=== PATIENT | female | born 1995 | race Caucasian/White ===

== ENCOUNTER 2019-01-09 00:43 | Emergency (ER) | payer OTHER ==
[~2019-01-09] VITALS: Ht 165.1 cm; Wt 87.9 kg
[2019-01-09] MEDS ORDERED: XANAX0.5 M1 PO (00:59)
[2019-01-09 02:12] LABS: HEMATOCRIT 40.1 % (37.0-47.0); HEMOGLOBIN 13.6 g/dL (12.5-16.0); MEAN CELL VOLUME 83 fl (78-100); MEAN CORPUSCULAR HEMOGLOBIN 28 pg (27-31); MEAN CORPUSCULAR HGB CONC 34 g/dL (33-37); PLATELET COUNT 279 K/mm3 (130-400); RED BLOOD COUNT 4.83 M/mm3 (4.10-5.30); RED CELL DISTRIBUTION WIDTH 13.4 % (11.5-14.5); WHITE BLOOD COUNT 6.9 K/mm3 (4.8-10.8)
[2019-01-09 02:28] LABS: LYMPHOCYTE 26 % (20-51); MONOCYTE 10 % (3-10); NEUTROPHILS 62 % (42-75)
[2019-01-09] MEDS ORDERED: VALACYCLOVIR1 GM PO ×2 (02:48→02:50)
[2019-01-09] MEDS ORDERED: CEPHALEXIN250 MG PO (02:48)
[2019-01-09 02:49] VITALS: BP 108/78
== END 2019-01-09 02:57 | disposition home or self-care (01) ==
LOC: ED 00:43
PROVIDERS: Family Medicine
DX: J06.9 Acute upper respiratory infection, unspecified (principal); H10.9 Unspecified conjunctivitis; N76.6 Ulceration of vulva; F32.9 Major depressive disorder, single episode, unspecified; F17.210 Nicotine dependence, cigarettes, uncomplicated; F17.290 Nicotine dependence, other tobacco product, uncomplicated

== ENCOUNTER 2019-09-04 09:53 | Emergency (ER) | payer SELFPAY ==
[~2019-09-04] VITALS: Ht 165.1 cm; Wt 79.5 kg
[~2019-09-04 09:53] MED LIST: CEPHALEXIN250 MG PO; VALACYCLOVIR1 GM PO; XANAX0.5 M1 PO
[2019-09-04 10:49] LABS: EOS # 0.3 (0.04-0.40); EOS % 3.4 % (1.0-5.0); HEMATOCRIT 44.2 % (37.0-47.0); HEMOGLOBIN 14.8 g/dL (12.5-16.0); LYMPH# 2.4 (1.50-4.00); MEAN CELL VOLUME 88 fl (78-100); MEAN CORPUSCULAR HEMOGLOBIN 30 pg (27-31); MEAN CORPUSCULAR HGB CONC 34 g/dL (33-37); MEAN PLATELET VOLUME 9.9 fl (7.4-10.4); PLATELET COUNT 302 K/mm3 (130-400); RED BLOOD COUNT 5.02 M/mm3 (4.10-5.30); RED CELL DISTRIBUTION WIDTH 13.2 % (11.5-14.5); WHITE BLOOD COUNT 8.8 K/mm3 (4.8-10.8)
[2019-09-04 11:18] LABS: URINE APPEARANCE CLOUDY; URINE BILIRUBIN NEGATIVE (NEGATIVE); URINE BLOOD NEGATIVE (NEGATIVE); URINE COLOR YELLOW; URINE GLUCOSE NEGATIVE (NEGATIVE); URINE KETONE NEGATIVE (NEGATIVE); URINE LEUKOCYTE ESTERASE TRACE (NEGATIVE); URINE NITRATE NEGATIVE (NEGATIVE); URINE PROTEIN(semi-quant) NEGATIVE (NEGATIVE); URINE UROBILINOGEN NORMAL (NORMAL)
[2019-09-04 12:00] VITALS: BP 111/73
== END 2019-09-04 12:05 | disposition home or self-care (01) ==
LOC: ED 09:53
PROVIDERS: Family Medicine
DX: R10.32 Left lower quadrant pain (principal); Z87.42 Personal history of other diseases of the female genital tract
CPT/HCPCS: J1885

== ENCOUNTER → 2019-11-08 | Outpatient (CLI) | payer SELFPAY | LOC: LAB 12:25 | DX: J02.9 Acute pharyngitis, unspecified (principal); Z20.828 Contact with and (suspected) exposure to other viral communicable diseases ==

== ENCOUNTER 2020-03-08 17:44 | Emergency (ER) | payer SELFPAY ==
[~2020-03-08] VITALS: Ht 165.1 cm; Wt 72.7 kg
[2020-03-08 18:44] LABS: HEMATOCRIT 47.2 % (37.0-47.0); HEMOGLOBIN 15.5 g/dL (12.5-16.0); MEAN CELL VOLUME 89 fl (78-100); MEAN CORPUSCULAR HEMOGLOBIN 29 pg (27-31); MEAN CORPUSCULAR HGB CONC 33 g/dL (33-37); MEAN PLATELET VOLUME 9.9 fl (7.4-10.4); PLATELET COUNT 282 K/mm3 (130-400); RED BLOOD COUNT 5.32 M/mm3 (4.10-5.30); RED CELL DISTRIBUTION WIDTH 13.5 % (11.5-14.5); WHITE BLOOD COUNT 6.6 K/mm3 (4.8-10.8)
[2020-03-08 18:52] LABS: POTASSIUM 3.9 mmol/L (3.5-5.1)
[2020-03-08 18:53] LABS: URINE APPEARANCE CLEAR; URINE BILIRUBIN NEGATIVE (NEGATIVE); URINE BLOOD TRACE (NEGATIVE); URINE COLOR YELLOW; URINE GLUCOSE NEGATIVE (NEGATIVE); URINE KETONE NEGATIVE (NEGATIVE); URINE LEUKOCYTE ESTERASE TRACE (NEGATIVE); URINE NITRATE NEGATIVE (NEGATIVE); URINE PROTEIN(semi-quant) TRACE mg/dL (NEGATIVE); URINE UROBILINOGEN NORMAL (NORMAL)
[2020-03-08 18:53] LABS: CALCIUM 8.5 mg/dL (8.3-10.5)
[2020-03-08 18:55] LABS: URINE MUCUS PRESENT (NOT PRESENT)
[2020-03-08 19:01] LABS: LYMPHOCYTE 26 % (20-51); MONOCYTE 13 % (3-10); NEUTROPHILS 55 % (42-75)
[2020-03-08 19:28] VITALS: BP 118/60
== END 2020-03-08 19:28 | disposition home or self-care (01) ==
LOC: ED 17:44
PROVIDERS: Physician Assistant
DX: N93.9 Abnormal uterine and vaginal bleeding, unspecified (principal); F17.210 Nicotine dependence, cigarettes, uncomplicated; Z32.02 Encounter for pregnancy test, result negative; Z88.8 Allergy status to other drugs, medicaments and biological substances

== ENCOUNTER → 2020-03-15 | Outpatient (CLI) | payer SELFPAY ==
[2020-03-15 12:09] VITALS: BP 134/60
== END ==
LOC: AMSURD 11:36
DX: A54.9 Gonococcal infection, unspecified (principal)
CPT/HCPCS: J0696